=== PATIENT | female | born 1930 | race Caucasian/White ===

== ENCOUNTER 2016-11-29 08:05 | Inpatient (IN) | payer OTHER, BC ==
[~2016-11-29] VITALS: Ht 162.6 cm; Wt 59.9 kg
--- NOTE | ~2016-11-29 | 2DMMODE ---
[facility] [address] [place] [address] 2 D/M-MODE ECHOCARDIOGRAM Name: GRICEL LORENZ Room #: 312-P [facility] IN ..#: [id number] Admission: 11/29/16 Attend Phys: Modesto Andrews, Discharge: Date of : 28 Date of Service: 11/29/16 1245 Report #: [id number] THIS REPORT FOR: //name// APPROVED REPORT Study performed: 11/29/2016 11:24:20 EXAM: Comprehensive 2D, Doppler, and color-flow Echocardiogram Patient Location: Bedside Room #: 312 Other Information Study Quality: Adequate Indications Dizziness and Vertigo Fatigue Echo Enhancing Agent Indication: Rule out Shunt Agent(s) / Amount(s) Used: Agitated Saline 6 cc 2D Dimensions RVDd: 38.16 mm LVEF(%): 68.11 (>50%) IVSd: 9.42 (7-11mm) LVOT Diam: 17.94 (18-24mm) LVDd: 39.95 mm PWd: 9.66 (7-11mm) Ascending Ao: 28.98 (22-36mm) LVDs: 24.97 (25-40mm) Aortic Root: 33.27 mm IVC: 18.00 mm Alcala's LVEF: 68.11 % Volumes Left Atrial Volume (Systole) Single Plane 4CH: 30.95 mL Single Plane 2CH: 38.96 mL LA ESV Index: 26.00 mL/m2 Aortic Valve AoV Peak Cristi.: 1.84 m/s AO Peak Gr.: 13.49 mmHg LVOT Max P.43 mmHg LVOT Max V: 1.27 m/s ROMA Vmax: 1.74 cm2 Mitral Valve E/A Ratio: 0.9 [facility] [address] P. [address]abai, [place] [address] 2 D/M-MODE ECHOCARDIOGRAM Name: GRICEL LORENZ Room #: 312-P [facility] IN M.R.#: [id number] Admission: 11/29/16 Attend Phys: Modesto Andrews, Discharge: Date of : 28 Date of Service: 11/29/16 1245 Report #: [id number] MV Decel. Time: 254.06 ms MV E Max Cristi.: 0.97 m/s MV A Cristi.: 1.04 m/s MV PHT: 73.68 ms IVRT: 107.27 ms Pulmonary Valve PV Peak Cristi.: 0.86 m/s PV Peak Gr.: 2.99 mmHg Pulmonary Vein P Vein S: 0.66 m/s P Vein A: 0.27 m/s P Vein D: 0.33 m/s P Vein A Dur.: 128.0 msec P Vein S/D Ratio: 2.00 Tricuspid Valve TR Peak Cristi.: 2.69 m/s RAP Estimate: 5.00 mmHg TR Peak Gr.: 29.03 mmHg Left Ventricle The left ventricle is normal size. There is normal LV segmental wall motion. There is normal left ventricular wall thickness. The left ventricular systolic function is normal. The left ventricular ejection fraction is within the normal range. LVEF is 60-65%. Mild diastolic dysfunction is present (impaired relaxation pattern). Right Ventricle The right ventricle is normal size. The right ventricular systolic function is normal. Atria The left atrium size is normal. Injection of bubbles documented no shunting. The right atrium size is normal. Aortic Valve The Aortic valve is sclerotic. No aortic regurgitation is present. There is no aortic valvular stenosis. Mitral Valve Moderate mitral annular calcification Trace mitral regurgitation. No evidence of mitral valve stenosis. Tricuspid Valve The tricuspid valve is normal in structure. There is mild to moderate tricuspid regurgitation. The right atrial pressure is estimated at 5 mmHg and PAP is estimated at [address] [place] [address] 2 D/M-MODE ECHOCARDIOGRAM Name: GRICEL LORENZ Room #: 312-P [facility] IN .R.#: [id number] Admission: 11/29/16 Attend Phys: Modesto Andrews, Discharge: Date of : 28 Date of Service: 11/29/16 1245 Report #: [id number] Pulmonic Valve Pulmonic valve is not well visualized. Great Vessels The aortic root is normal in size. IVC is normal in size and collapses >50% with inspiration. Pericardium There is no pericardial effusion. <Conclusion> The left ventricular systolic function is normal. There is normal LV segmental wall motion. LVEF is 60-65%. The Aortic valve is sclerotic. No aortic valvular stenosis or insufficiency. Moderate mitral annular calcification. Mild insufficiency Pulmonary artery pressure of 34mmHg No shunting by contrast bubble injection There is no pericardial effusion. <ELECTRONICALLY SIGNED> By: Omar Gonzalez MD, FACC 11/29/16 1245 1245 1245 Omar Gonzalez MD, FACC /INF
--- NOTE | ~2016-11-29 | HC ---
[facility] [place] [address] CONSULTATION Name: CANDACEKATRINAGRICEL Smallwood Room #: 312-P [facility] IN M.R.#: [id number] Admission: 11/29/16 Attend Phys: Modesto Andrews DO Discharge: 11/30/16 Date of : 28 Report #: [id number] THIS REPORT FOR: //name// CC: Modesto Cartagena REASON FOR CONSULTATION: Syncope. HISTORY OF PRESENT ILLNESS: The patient is an 86-year-old woman with a history of remote stenting of the ostium of the right coronary. She has a history of hypertension, chronic kidney disease and paroxysmal atrial fibrillation for which she has been maintained on beta blockade and anticoagulant therapy. She now presents with recurrent syncope. She has had four syncopal episodes in the past couple of years. One episode occurred while she was standing in mandaen. Last , she got up in the middle of the night and felt "wobbly." She made it to the kitchen to take a Tylenol, the next thing she remembers she was on the kitchen floor. She did develop a scalp hematoma. She called her [id number] at around 7:15 who took her to the Emergency Department, at which time she was found to be in atrial fibrillation. Her metoprolol dose was increased to 25 mg twice daily. She had improved rate control and was discharged to home. This morning, she felt poorly again with extreme unsteadiness on her feet; rather than keeping her scheduled appointment with Dr. Wellington at 09:30, she was brought to the Emergency Department here. She denies chest pain, pressure or ischemic type symptoms. No heart failure symptoms including orthopnea, paroxysmal nocturnal dyspnea or lower extremity edema. She has had no symptoms, namely palpitations from her atrial fibrillation. ALLERGIES: No known drug allergies. MEDICATIONS: Amlodipine 2.5 mg daily, warfarin, lisinopril 2.5 mg daily, , levothyroxine 50 mcg daily, simvastatin 10 mg daily, metoprolol 25 mg twice daily, warfarin 4 mg alternating with 2 mg and hydrochlorothiazide 25 mg daily. PAST MEDICAL HISTORY: Medical records have been reviewed and include a history of cholecystectomy, hysterectomy, appendectomy and cataract excision. SOCIAL HISTORY: She is a homemaker, nonsmoker. FAMILY HISTORY: Sister had bypass at 55; son had a bypass at 53. REVIEW OF SYSTEMS: All systems negative except as that noted above. PHYSICAL EXAMINATION: GENERAL: Exam reveals a pleasant woman in no distress. VITAL SIGNS: Blood pressure is 160/69, heart rate of 60 and regular. She is afebrile, 5 feet 4 inches tall, 132 [place] [address] CONSULTATION Name: GRICEL LORENZ Room #: 312-P [facility] IN M.R.#: [id number] Admission: 11/29/16 Attend Phys: Modesto Andrews DO Discharge: 11/30/16 Date of : 28 Report #: [id number] HEENT: There are neither xanthelasma, subcutaneous xanthomata, oral mucosal or digital cyanosis or kyphoscoliosis present. CHEST: Clear to auscultation and percussion. CARDIAC: Regular rate and rhythm with normal S1, S2. No murmurs or rubs. ABDOMEN: Soft and nontender. EXTREMITIES: Without cyanosis, clubbing or edema. Radial pulses are 2+. NEUROLOGIC: She is alert with a nonfocal exam. LABORATORY DATA: EKG; sinus rhythm, early R-wave progression. Sodium is 136, potassium 3.8, creatinine 1.2. Glucose 137. ProBNP of 1233, LDL of 70. INR of 1.9. White count 6.4, hemoglobin 13, hematocrit 40, platelet count 167, normal thyroid function studies. CAT scan shows chronic microvascular disease. Carotid arteries show mild bilateral plaquing. IMPRESSION: 1. Recurrent syncope, suspicious for tachybrady syndrome. 2. Paroxysmal atrial fibrillation, now in sinus. 3. Hypertension. 4. Diabetes, diet controlled. 5. Coronary artery disease with remote stenting of the right coronary. 6. Dyslipidemia. RECOMMENDATIONS: Telemetry monitoring overnight; if unrevealing, I would consider a 2-4 week event recorder and possibly an implantable event recorder. These symptoms are suspicious for a primary bradydysrhythmia. I have discussed this with the patient and her son today. I have reviewed today's echocardiogram which demonstrates normal systolic function, no shunting and no significant valvular heart disease. Thank you for asking me to participate in the patient's care. <ELECTRONICALLY SIGNED> By: Omar Gonzalez MD, [facility] 12/01/16 0811 1739 0054 Omar Gonzalez MD, [facility] /nt
--- NOTE | ~2016-11-29 | EKG ---
[address] [place] [address] ELECTROCARDIOGRAM REPORT Name: GRICEL LORENZ Room #: 312-P ADM IN M.R.#: [id number] Admission: 11/29/16 Attend Phys: Modesto Andrews DO Discharge: Date of : 28 Report #: [id number] THIS REPORT FOR: //name// [facility] ED Test Date: 2016-11-29 Test Time: 08:24:20 Pat Name: GRICEL LORENZ Department: Room: [facility] Gender: F Professor Of Communication Arts: MELODY Chaudhari : 1930 Requested By: Jacqui Remy Order Number: [id number] MD: Omar Gonzalez Measurements Intervals [place] Rate: 57 P: -19 RI: 174 QRS: 11 QRSD: 93 T: 26 QT: 458 QTc: 446 Interpretive Statements Sinus rhythm Probable left atrial enlargement Abnormal R-wave progression, early transition Compared to ECG 08/22/2008 06:54:11 Premature ventricular complexes no longer present Electronically Signed On 11-30-2016 7:51:12 CDT by Omar Gonzalez [email or web address] <ELECTRONICALLY SIGNED> By: Omar Gonzalez MD, [facility] 11/30/16 0751 0824 0824 Omar Gonzalez MD, [facility] /EPI
--- NOTE | ~2016-11-29 | EKG ---
[address] [address] ELECTROCARDIOGRAM REPORT Name: GRICEL LORENZ Room #: 312-P ADM IN M.R.#: [id number] Admission: 11/29/16 Attend Phys: Modesto Andrews DO Discharge: Date of : 28 Report #: [id number] THIS REPORT FOR: //name// [facility] Test Date: 2016-11-30 Test Time: 05:38:22 Pat Name: GRICEL LORENZ Department: Room: 312 Gender: F [employer]: KI : 1930 Requested By: Omar Gonzalez Order Number: [id number] MD: Jagjit Lorenz Measurements Intervals [place] Rate: 61 P: 9 [place]: 161 QRS: 34 QRSD: 91 T: 46 QT: 456 QTc: 460 Interpretive Statements Sinus rhythm Abnormal R-wave progression, early transition Compared to ECG 08/22/2008 06:54:11 ST (T wave) deviation no longer present Electronically Signed On 11-30-2016 13:19:28 CDT by Jagjit Lorenz [email or web address] <ELECTRONICALLY SIGNED> By: Jagjit Lorenz MD 11/30/16 1319 0538 0538 Jagjit Lorenz MD /EPI
[2016-11-29 08:06] VITALS: BP 175/82
[2016-11-29 08:34] LABS: ABSOLUTE NEUTROPHILS 3.5 thou/uL (1.4-8.2); BASOPHILS 0.4 % (0.0-2.0); EOSINOPHILS 0.6 % (0.0-3.0); HEMATOCRIT 40.8 % (37.0-47.0); HEMOGLOBIN 13.8 gm/dL (12.0-15.0); LYMPHOCYTES 35.2 % (24.0-44.0); MCH 30.8 pg (26.0-34.0); MCHC 33.7 g/dL (28.0-37.0); MCV 91.5 fL (80.0-100.0); PLATELET COUNT 167 thou/uL (150-400); POLYS 54.8 % (36.0-66.0); RBC 4.46 mil/uL (4.20-5.00); RDW 12.9 % (10.5-14.5); WBC 6.4 thou/uL (4.0-11.0)
[2016-11-29] MEDS ORDERED: NORVASC2.5 MG PO (08:34)
[2016-11-29] MEDS ORDERED: BAYER CHEWABLE81 MG PO (08:34)
[2016-11-29] MEDS ORDERED: TUMS PO (08:34)
[2016-11-29] MEDS ORDERED: LOPRESSOR50 PO (08:35)
[2016-11-29] MEDS ORDERED: LEVOTHYROXINE0.05 MG PO (08:35)
[2016-11-29] MEDS ORDERED: ZOCOR20 MG PO (08:35)
[2016-11-29] MEDS ORDERED: HYDROCHLOROTHIA25 M2 PO (08:35)
[2016-11-29] MEDS ORDERED: COUMADIN 4 MG TA4 M1 PO (08:37)
[2016-11-29] MEDS ORDERED: COUMADIN 2 MG TA2 M1 PO (08:37)
[2016-11-29] MEDS ORDERED: AMBIEN 5 MG TABL5 M1 PO (08:37)
[2016-11-29 08:38] LABS: MANUAL DIFF NO
[2016-11-29 08:45] LABS: ANION GAP 1 mmol/L (7-16); BUN 15 mg/dL (7-18); CALCIUM 9.2 mg/dL (8.5-10.1); CHLORIDE 107 mmol/L (98-107); CO2 28 mmol/L (21-32); CREATININE 1.2 mg/dL (0.6-1.0); GLUCOSE 137 mg/dL (74-106); POTASSIUM 3.8 mmol/L (3.5-5.1); SODIUM 136 mmol/L (136-145)
[2016-11-29 08:50] LABS: APTT 28.2 Seconds (24.5-32.8); INR 1.9; PROTIME 19.4 Seconds (9.3-11.4)
[2016-11-29 08:56] LABS: ALBUMIN 3.5 g/dL (3.4-5.0); ALKALINE PHOSPHATASE 55 U/L (46-116); DIRECT BILIRUBIN 0.1 mg/dL (<0.1-0.3); MAGNESIUM 1.9 mg/dL (1.8-2.4); NT-PRO BRAIN NAT PEPTIDE 1233 pg/mL (<300); SGOT 23 U/L (15-37); SGPT 21 U/L (30-65); TOTAL BILIRUBIN 0.5 mg/dL (<0.1-1.0); TROPONIN-I < 0.04 ng/mL (<0.04-0.07)
[2016-11-29 10:48] VITALS: BP 156/74
[2016-11-29 11:15] VITALS: BP 162/69
[2016-11-29 11:43] LABS: CHOLESTEROL 144 mg/dL (<200); HDL CHOLESTEROL 43 mg/dL (>40); LDL CHOLESTEROL 70 mg/dL (<100); TC:HDL 3.3 Ratio (Not establshd); TRIGLYCERIDE 155 mg/dL (<150); VLDL 31 mg/dL (<40)
[2016-11-29 17:15] LABS: FOLIC ACID 10.3 ng/mL (8.6-58.9)
[2016-11-29 20:08] VITALS: BP 156/69; BP 174/71
[2016-11-29 20:09] VITALS: BP 165/79
[2016-11-29 23:57] VITALS: BP 129/58
[2016-11-30 00:06] LABS: FREE T4 1.27 ng/dL (0.82-1.77)
[2016-11-30 04:25] VITALS: BP 140/62
[2016-11-30 06:10] LABS: GLYCOHEMOGLOBIN (HGB A1C) 5.9 % (4.8-5.6)
[2016-11-30] MEDS ORDERED: LOPRESSOR25 PO (08:17)
[2016-11-30 08:26] VITALS: BP 143/66
[2016-11-30 14:40] VITALS: BP 143/66
[2016-11-30 14:44] VITALS: BP 143/66
[2016-12-01 22:10] LABS: ALPHA TOCOPHEROL 9.5 mg/L (6.5-21.5)
== END 2016-11-30 14:47 | disposition home health service (06) | DRG 309 ==
LOC: ER 08:05 → EROBS 09:57 → 3N 09:57
PROVIDERS: Emergency Medicine; Family Medicine; Psychiatry & Neurology Neurology
DX: I49.5 Sick sinus syndrome (principal); D68.59 Other primary thrombophilia; I48.0 Paroxysmal atrial fibrillation; I25.10 Atherosclerotic heart disease of native coronary artery without angina pectoris; E78.5 Hyperlipidemia, unspecified; E11.22 Type 2 diabetes mellitus with diabetic chronic kidney disease; I12.9 Hypertensive chronic kidney disease with stage 1 through stage 4 chronic kidney disease, or unspecified chronic kidney disease; N18.9 Chronic kidney disease, unspecified; Z90.49 Acquired absence of other specified parts of digestive tract; Z90.710 Acquired absence of both cervix and uterus; Z98.49 Cataract extraction status, unspecified eye; Z95.5 Presence of coronary angioplasty implant and graft; Z79.899 Other long term (current) drug therapy; Z79.82 Long term (current) use of aspirin
CPT/HCPCS: 10096

== ENCOUNTER → 2016-12-30 | Outpatient (CLI) | payer OTHER, BC ==
[~2016-12-30] MED LIST: AMBIEN 5 MG TABL5 M1 PO; BAYER CHEWABLE81 MG PO; COUMADIN 2 MG TA2 M1 PO; COUMADIN 4 MG TA4 M1 PO; HYDROCHLOROTHIA25 M2 PO; LEVOTHYROXINE0.05 MG PO; LOPRESSOR100 M1 PO; LOPRESSOR25 PO; LOPRESSOR50 PO; NORVASC2.5 MG PO; TRIAMTERENE-HC1 EAC3 PO; TUMS PO; ZOCOR20 MG PO
[2016-12-30 10:41] LABS: ABSOLUTE NEUTROPHILS 4.1 thou/uL (1.4-8.2); BASOPHILS 0.7 % (0.0-2.0); EOSINOPHILS 0.5 % (0.0-3.0); HEMATOCRIT 42.3 % (37.0-47.0); HEMOGLOBIN 14.4 gm/dL (12.0-15.0); LYMPHOCYTES 32.5 % (24.0-44.0); MCH 30.9 pg (26.0-34.0); MCV 90.8 fL (80.0-100.0); MONOCYTES 8.6 % (1.0-8.0); PLATELET COUNT 196 thou/uL (150-400); POLYS 57.7 % (36.0-66.0); RBC 4.66 mil/uL (4.20-5.00); RDW 13.5 % (10.5-14.5); WBC 7.1 thou/uL (4.0-11.0)
[2016-12-30 10:42] LABS: MANUAL DIFF NO
[2016-12-30 10:50] LABS: ANION GAP 6 mmol/L (7-16); BUN 15 mg/dL (7-18); CALCIUM 9.7 mg/dL (8.5-10.1); CHLORIDE 104 mmol/L (98-107); CO2 32 mmol/L (21-32); CREATININE 1.3 mg/dL (0.6-1.0); GLUCOSE 107 mg/dL (74-106); POTASSIUM 3.5 mmol/L (3.5-5.1); SODIUM 142 mmol/L (136-145)
[2016-12-30 10:55] VITALS: BP 142/61
[2016-12-30 10:56] LABS: ALBUMIN 3.9 g/dL (3.4-5.0); ALKALINE PHOSPHATASE 67 U/L (46-116); DIRECT BILIRUBIN < 0.1 mg/dL (<0.1-0.3); SGOT 24 U/L (15-37); SGPT 24 U/L (30-65); TOTAL BILIRUBIN 0.4 mg/dL (<0.1-1.0); TOTAL PROTEIN 7.6 g/dL (6.4-8.2)
[2016-12-30 10:59] LABS: INR 1.3; PROTIME 12.5 Seconds (9.3-11.4)
[2016-12-30 11:01] LABS: APTT 22.9 Seconds (24.5-32.8)
[2016-12-30 12:43] VITALS: BP 142/61
== END ==
LOC: CATH 09:55
PROVIDERS: Internal Medicine Cardiovascular Disease
DX: I48.91 Unspecified atrial fibrillation (principal); I25.10 Atherosclerotic heart disease of native coronary artery without angina pectoris; I10 Essential (primary) hypertension; E11.9 Type 2 diabetes mellitus without complications; K21.9 Gastro-esophageal reflux disease without esophagitis; I65.23 Occlusion and stenosis of bilateral carotid arteries; Z90.49 Acquired absence of other specified parts of digestive tract; Z90.710 Acquired absence of both cervix and uterus; Z98.890 Other specified postprocedural states